=== PATIENT | male | born 1950 | race Caucasian/White ===

== ENCOUNTER → 2017-08-26 | Outpatient (CLI) | payer OTHER ==
--- NOTE | 2017-08-26 14:49 | DIAGNOSTIC IMAGING REPORT ---
RIGHT HIP 2 VIEWS CLINICAL HISTORY: Right hip pain. FINDINGS: AP and frog-leg views of the right hip are obtained. No prior studies are available for comparison at the time of dictation. The skeletal structures are well mineralized for age. No fracture is seen in the right hip or the visualized right hemipelvis. Mild arthritic change and joint space loss is noted in the hips. Small enthesophytes arise from the right anterior superior iliac spine. There is mild sclerotic change seen in the right sacroiliac joint. The overlying soft tissues are within normal limits. Phleboliths are identified in the right hemipelvis. IMPRESSION: Mild arthritic change as above. No acute bony abnormality is seen in the right hip. Electronically signed by: Omar Garcia M.D. 08/26/2017 2:47 PM Dictated Date/Time: 08/26/2017 2:46 PM
== END | disposition home or self-care (01) ==
LOC: C.RAD1850 14:17
PROVIDERS: ATTEND Family Medicine
DX: M25.559 Pain in unspecified hip (principal)

== ENCOUNTER 2018-06-08 15:01 | Inpatient (IN) | payer OTHER ==
[~2018-06-08] VITALS: Ht 175.3 cm; Wt 83.6 kg
[2018-06-08] MEDS ORDERED: ASPIRIN 324 MG CHEW PO STA (15:41)
--- NOTE | 2018-06-08 15:54 | EMERGENCY ROOM VISIT NOTE ---
History Report prepared by Dada: Anila Goncalves Under the Supervision of: Dr. Ivan Lo M.D. First contact with patient: 15:34 Chief Complaint: CHEST PAIN Stated Complaint: CHEST PAIN WHEN EXERCISING History of Present Illness The patient is a 67 year old white male with a past medical history of Type II diabetes and HTN who presents to the ED with a cc of intermittent chest pain on exertion beginning 3-4 weeks ago. He states he first noted the pain 3-4 weeks ago while running on a treadmill, and decided to push through it. The patient states he has continued to have pain with exertion, and has stopped running the past few times it occurred. He reports he experienced the pain while walking yesterday. The patient describes the pain as a pressure and states it is located in the center of his test. He notes some nausea, and denies any vomiting , calf pain, or history of blood clots. The patient denies any personal history of heart disease. He reports he takes a baby aspirin every night, and has not yet taken one today. The patient notes his BP medication was recently changed. He was referred to the ED following an appointment at [facility] physician group today. Source of History: patient Onset: 3-4 weeks ago Position: chest Quality: pressure Timing: other (intermittent) Modifying Factors (Worsening): other (exertion) Associated Symptoms: + nausea, No vomiting Note: Denies: calf pain Review of Systems See HPI for pertinent positives and negatives. A total of ten systems were reviewed and were otherwise negative. Past Medical & Surgical Medical Problems: (1) HTN (hypertension) (2) Type 2 diabetes mellitus Family History No pertinent family history stated. Social History Smoking Status: Never Smoker Smokeless Tobacco Use: No Current/Historical Medications Scheduled Aspirin (Aspirin Ec), 81 MG PO QPM Coenzyme Q10 (Ubidecarenone) (Coq10), 200 MG PO BID Ezetimibe (Zetia), 10 MG PO DAILY Losartan Potassium (Cozaar), 100 MG PO DAILY Metformin Hcl (Glucophage), 500 MG PO QPM Multivitamins/Minerals (Mvi With Minerals), 1 TAB PO DAILY Omeprazole (Prilosec), 40 MG PO DAILY Polyethylene Glycol 3350 (Bulk (Polyethylene Glycol 3350), 17 GM PO QPM Allergies Coded Allergies: No Known Allergies (Unverified , 06/08/18) Physical Exam Vital Signs Date Time Temp Pulse Resp B/P (MAP) Pulse Ox O2 Delivery O2 Flow Rate FiO2 06/08/18 18:25 70 20 151/84 95 Room Air 06/08/18 17:30 75 95 Room Air 06/08/18 17:00 74 18 145/87 94 Room Air 06/08/18 16:12 69 06/08/18 16:12 96 Room Air 06/08/18 16:10 67 17 156/80 97 Room Air 06/08/18 15:06 98 Room Air 06/08/18 15:04 36.4 86 17 146/94 98 Room Air Physical Exam GENERAL: Awake, alert, well-appearing, NAD, wearing glasses HENT: Normocephalic, atraumatic. EYES: Normal conjunctiva. Sclera non-icteric. PERRL. No anisocoria. NECK: Supple. No nuchal rigidity. FROM. RESPIRATORY: CTAB, no rhonchi, wheezing, crackles CARDIAC: RRR, no MRG ABDOMEN: Soft, NTND, BS+ MSK: No chest wall TTP, no LE edema, no calf pain, negative Ministerio's. NEURO: GCS 15, CN 2-12 intact, moves all 4s on command SKIN: No rash or jaundice noted. Medical Decision & Procedures ER Provider Diagnostic Interpretation: Radiology results as stated below per my review and radiologist interpretation: CHEST ONE VIEW PORTABLE CLINICAL HISTORY: Atypical chest pain COMPARISON STUDY: No previous studies for comparison. FINDINGS: The cardiac and mediastinal contours are normal. There is no evidence of focal pulmonary consolidation. There is no evidence of failure. No pleural effusions are visualized.[ A vague 6 mm density within the axillary portion of the left chest, likely represents a projectional artifact. IMPRESSION: No active disease in the chest. Electronically signed by: Juanito Pina M.D. 06/08/2018 4:09 PM Dictated Date/Time: 06/08/2018 4:06 PM Laboratory Results 06/08/18 15:55 Red Blood Count 5.09, Mean Corpuscular Volume 88.6, Mean Corpuscular Hemoglobin 29.3, Mean Corpuscular Hemoglobin Concent 33.0, Mean Platelet Volume 9.3, Neutrophils (%) (Auto) 66.5, Lymphocytes (%) (Auto) 23.0, Monocytes (%) (Auto) 7.6, Eosinophils (%) (Auto) 2.4, Basophils (%) (Auto) 0.2, Neutrophils # (Auto) 7.88, Lymphocytes # (Auto) 2.73, Monocytes # (Auto) 0.90, Eosinophils # (Auto) 0.29, Basophils # (Auto) 0.02 06/08/18 15:55 Test 06/08/18 15:55 White Blood Count 11.86 K/uL (4.8-10.8) Red Blood Count 5.09 M/uL (4.7-6.1) Hemoglobin 14.9 g/dL (14.0-18.0) Hematocrit 45.1 % (42-52) Mean Corpuscular Volume 88.6 fL (80-100) Mean Corpuscular Hemoglobin 29.3 pg (25-34) Mean Corpuscular Hemoglobin Concent 33.0 g/dl (32-36) Platelet Count 288 K/uL (130-400) Mean Platelet Volume 9.3 fL (7.4-10.4) Neutrophils (%) (Auto) 66.5 % Lymphocytes (%) (Auto) 23.0 % Monocytes (%) (Auto) 7.6 % Eosinophils (%) (Auto) 2.4 % Basophils (%) (Auto) 0.2 % Neutrophils # (Auto) 7.88 K/uL (1.4-6.5) Lymphocytes # (Auto) 2.73 K/uL (1.2-3.4) Monocytes # (Auto) 0.90 K/uL (0.11-0.59) Eosinophils # (Auto) 0.29 K/uL (0-0.5) Basophils # (Auto) 0.02 K/uL (0-0.2) RDW Standard Deviation 43.2 fL (36.4-46.3) RDW Coefficient of Variation 13.2 % (11.5-14.5) Immature Granulocyte % (Auto) 0.3 % Immature Granulocyte # (Auto) 0.04 K/uL (0.00-0.02) Prothrombin Time 10.2 SECONDS (9.0-12.0) Prothromb Time International Ratio 1.0 (0.9-1.1) Activated Partial Thromboplast Time 27.5 SECONDS (21.0-31.0) Partial Thromboplastin Ratio 1.1 Anion Gap 8.0 mmol/L (3-11) Est Creatinine Clear Calc Drug Dose 81.6 ml/min Estimated GFR () 93.4 Estimated GFR (Non- 80.6 BUN/Creatinine Ratio 18.8 (10-20) Calcium Level 9.3 mg/dl (8.5-10.1) Phosphorus Level 4.3 mg/dl (2.5-4.9) Magnesium Level 1.9 mg/dl (1.8-2.4) Total Bilirubin 0.4 mg/dl (0.2-1) Direct Bilirubin < 0.1 mg/dl (0-0.2) Aspartate Amino Transf (AST/SGOT) 21 U/L (15-37) Alanine Aminotransferase (ALT/SGPT) 29 U/L (12-78) Alkaline Phosphatase 84 U/L (45-117) Troponin I < 0.015 ng/ml (0-0.045) Pro-B-Type Natriuretic Peptide 71 pg/ml (0-900) Total Protein 7.2 gm/dl (6.4-8.2) Albumin 3.8 gm/dl (3.4-5.0) Lipase 95 U/L (73-393) Laboratory results reviewed by me Medications Administered Medications (Trade) Dose Ordered Sig/Kathryn Route Start Time Stop Time Status Last Admin Dose Admin Aspirin (Aspirin Chew) 324 mg NOW STAT PO 06/08/18 15:41 06/08/18 15:43 DC 06/08/18 16:13 324 MG ECG Per My Interpretation Indication: chest pain Rate (beats per minute): 61 Rhythm: normal sinus Findings: other (normal intervals. normal axis. T-wave flattening anteriorly ) ED Course 1535: The patient was evaluated in room C8. A complete history and physical exam was performed. 1844: Discussed the patient's case with Dr. Cannon, [facility] hospitalist. The patient will be evaluated for further treatment and disposition. Medical Decision Nursing notes reviewed. Ancillary studies and prior records reviewed. The patient is a 67 year old white male with a past medical history of Type II diabetes and HTN who presents to the ED with a cc of intermittent chest pain on exertion beginning 3-4 weeks ago. Etiologies such as cardiac ischemia, aortic dissection, pulmonary embolism, pneumonia, pneumothorax, musculoskeletal, infections, pericarditis, myocarditis , esophageal rupture, gastrointestinal, as well as others were entertained. Patient was seen and evaluated the bedside. H/o DM2, HTN, HLD, and GERD. The patient was referred from primary care clinic as the patient had been seen and evaluated there. The primary care physician had called for you to [facility] cardiology referred him here was concern for anginal type symptoms. Patient is otherwise well-appearing but has describes some exertion chest pains that is central and pressure-like in nature. Patient denies any infectious symptoms or history of DVT or PE. The patient does not appear volume overloaded. Patient did blood work completed, EKG, troponin, chest x-ray. The patient was given full dose aspirin. Patient denies any active chest pain. Patient does have some T-wave flattening anteriorly but no acute ischemic changes. The patient does have a normal troponin and electrolytes. The patient is not anemic and has a normal white blood cell count. Given the patient's exertional chest pain symptoms I believe he would benefit from further workup and treatment at this time. He did speak with the on-call hospitalist who agreed to further evaluate treat the patient. The patient was also informed to notify any staff if he has any recurrence of chest pain. Medication Reconcilliation Current Medication List: was personally reviewed by me Blood Pressure Screening Patient's blood pressure: Elevated blood pressure Blood pressure disposition: Referred to PCP (referred to hospitalist) Consults Time Called: 1829 Consulting Physician: Dr. Cannon, [facility] hospitalist Returned Call: 1843 Discussed the patient's case with Dr. Cannon [facility] hospitalist. The patient will be evaluated for further treatment and disposition. Impression Primary Impression: Angina pectoris Scribe Attestation The scribe's documentation has been prepared under my direction and personally reviewed by me in its entirety. I confirm that the note above accurately reflects all work, treatment, procedures, and medical decision making performed by me. Departure Information Dispostion Being Evaluated By Hospitalist Referrals Loc Aquino M.D. (PCP) Patient Instructions My [facility]
--- NOTE | 2018-06-08 16:10 | DIAGNOSTIC IMAGING REPORT ---
CHEST ONE VIEW PORTABLE CLINICAL HISTORY: Atypical chest pain COMPARISON STUDY: No previous studies for comparison. FINDINGS: The cardiac and mediastinal contours are normal. There is no evidence of focal pulmonary consolidation. There is no evidence of failure. No pleural effusions are visualized.[ A vague 6 mm density within the axillary portion of the left chest, likely represents a projectional artifact. IMPRESSION: No active disease in the chest. Electronically signed by: Juanito Pina M.D. 06/08/2018 4:09 PM Dictated Date/Time: 06/08/2018 4:06 PM
[2018-06-08 16:11] LABS: BASO % 0.2 %; BASO ABS # 0.02 K/uL (0-0.2); EOS % 2.4 %; EOS ABS # 0.29 K/uL (0-0.5); HEMATOCRIT 45.1 % (42-52); HEMOGLOBIN 14.9 g/dL (14.0-18.0); IG# 0.04 K/uL (0.00-0.02); LYMPH ABS # 2.73 K/uL (1.2-3.4); MEAN CELL VOLUME 88.6 fL (80-100); MEAN CORPUSCULAR HEMOGLOBIN 29.3 pg (25-34); MEAN PLATELET VOLUME 9.3 fL (7.4-10.4); MONO % 7.6 %; NEUT % 66.5 %; NEUT ABS # 7.88 K/uL (1.4-6.5); PLATELET COUNT 288 K/uL (130-400); RED CELL DISTRIBUTION WIDTH CV 13.2 % (11.5-14.5); RED CELL DISTRIBUTION WIDTH SD 43.2 fL (36.4-46.3); WHITE BLOOD COUNT 11.86 K/uL (4.8-10.8)
[2018-06-08 16:24] LABS: ALBUMIN 3.8 gm/dl (3.4-5.0); ALKALINE PHOSPHATASE 84 U/L (45-117); ALT/SGPT 29 U/L (12-78); AST/SGOT 21 U/L (15-37); BLOOD UREA NITROGEN 18 mg/dl (7-18); CALCIUM 9.3 mg/dl (8.5-10.1); CARBON DIOXIDE 27 mmol/L (21-32); CREATININE 0.98 mg/dl (0.60-1.40); GLUCOSE 107 mg/dl (70-99); LIPASE 95 U/L (73-393); PHOSPHORUS 4.3 mg/dl (2.5-4.9); POTASSIUM 4.2 mmol/L (3.5-5.1); PTT PATIENT 27.5 SECONDS (21.0-31.0); SODIUM 139 mmol/L (136-145); TOTAL PROTEIN 7.2 gm/dl (6.4-8.2)
[2018-06-08] MEDS ORDERED: ASPI81TA28 PO (16:41)
[2018-06-08] MEDS ORDERED: OMEP40CA41 PO (16:41)
[2018-06-08] MEDS ORDERED: COEN1CAP7 PO (16:41)
[2018-06-08] MEDS ORDERED: LOSA1TAB38 PO (16:41)
[2018-06-08] MEDS ORDERED: GLC/500 PO (16:41)
[2018-06-08] MEDS ORDERED: MULT-513 PO (16:41)
[2018-06-08] MEDS ORDERED: EZET10TA63 PO (16:41)
[2018-06-08] MEDS ORDERED: POLY1POW2 PO (16:41)
[2018-06-08 23:23] VITALS: BP 165/74; PULSE 65; TEMP 36.7; O2SAT 99; Ht 175.3 cm; Wt 83.6 kg
[2018-06-09] VITALS (9 sets, daily range): BP systolic 109–141; BP diastolic 62–84; PULSE 59–81; TEMP 36.4–37; O2SAT 95–98
[2018-06-09] MEDS: POLYETHYLENE (MIRALAX) 17 GM PACK PO SCH ×2 (00:13→20:41)
[2018-06-09] MEDS: ASPIRIN 81 MG ECTAB PO SCH ×2 (00:13→20:41)
[2018-06-09 07:18] LABS: BASO % 0.3 %; BASO ABS # 0.03 K/uL (0-0.2); EOS % 3.4 %; EOS ABS # 0.35 K/uL (0-0.5); HEMATOCRIT 45.2 % (42-52); HEMOGLOBIN 14.8 g/dL (14.0-18.0); IG# 0.03 K/uL (0.00-0.02); LYMPH % 28.8 %; LYMPH ABS # 2.96 K/uL (1.2-3.4); MEAN CELL VOLUME 87.9 fL (80-100); MEAN CORPUSCULAR HEMOGLOBIN 28.8 pg (25-34); MEAN PLATELET VOLUME 9.5 fL (7.4-10.4); MONO % 11.7 %; NEUT % 55.5 %; PLATELET COUNT 279 K/uL (130-400); RED CELL DISTRIBUTION WIDTH SD 41.7 fL (36.4-46.3); WHITE BLOOD COUNT 10.27 K/uL (4.8-10.8)
[2018-06-09 07:23] LABS: MEAN CORPUSCULAR HGB CONC 32.7 g/dl (32-36)
[2018-06-09] MEDS: LOSARTAN POTASSIUM 50 MG TAB PO SCH (07:34)
[2018-06-09] MEDS: PANTOprazole SOD 40 MG TAB PO SCH (07:34)
[2018-06-09 07:45] LABS: BLOOD UREA NITROGEN 21 mg/dl (7-18); CALCIUM 9.2 mg/dl (8.5-10.1); CARBON DIOXIDE 29 mmol/L (21-32); CREATININE 1.04 mg/dl (0.60-1.40); GLUCOSE 117 mg/dl (70-99); SODIUM 140 mmol/L (136-145)
[2018-06-09] MEDS ORDERED: SODIUM CHLORIDE 0.9% 1000ML 1,000 ML IV SCH ×2 (08:45→12:30)
--- NOTE | 2018-06-09 09:08 | CARDIOLOGY CONSULTATION ---
DATE OF CONSULTATION: 06/09/2018 REQUESTING PHYSICIAN: Jerry Mujica MD SQUEEGEE FINISHER: Ronnell Bowen DO, [facility]. REASON FOR CONSULTATION: Unstable angina. Dear Dr. Mujica: It was pleasure to see Judson today in consultation with regards to his unstable angina. As you know, I do follow him in the outpatient setting. He describes a month ago he was able to exercise on the treadmill for an hour without any symptoms. He notes approximately 3 weeks ago, he started noticing chest tightness in the upper portion of his chest that started to radiate up into his throat and down his arm. Initially, he could push through it without having to stop, over the last couple of weeks has become significantly more progressive to the point that he is not able to walk on the treadmill at all without getting symptoms. In the last couple of days, he has tried to walk just on the flat and he is getting similar symptoms with discomfort down his arm. He denies any diaphoresis, nausea, vomiting. He presented to Dr. Aquino's office yesterday with progressive symptoms of unstable angina. They contacted our office and I recommended that he be admitted with unstable angina and plans for cardiac catheterization today. He currently denies any chest discomfort, resting in bed. He does have some lower abdominal discomfort. He denies any palpitations, lightheadedness, dizziness, presyncope, syncope, lower extremity edema, symptoms of claudication. He denies any bleeding, bruising, dark stools or black stools. He denies any plans for upcoming surgery, dental procedures, tooth extraction, colonoscopy, etc. REVIEW OF SYSTEMS: The rest of review of systems is otherwise negative. PAST MEDICAL HISTORY: 1. Hypertension. 2. Hyperlipidemia. 3. Diabetes mellitus type 2. FAMILY HISTORY: Positive for premature heart disease, both in his father and his brother. SOCIAL HISTORY: He is a lifetime nonsmoker. He is . He is retired. OUTPATIENT MEDICATIONS: Include aspirin, Coenzyme Q10, ezetimibe, losartan, metformin, multivitamin, omeprazole and polyethylene glycol. ALLERGIES: No known drug allergies, but he is intolerant of all statins due to significant myalgias. INPATIENT MEDICATIONS: Reviewed in detail. PHYSICAL EXAMINATION: GENERAL: He is awake, alert, oriented x3. He is in no acute distress. He is a well-appearing male, looks his stated age. VITAL SIGNS: His heart rate is 62, respirations 19, blood pressure 109/65, sat 97%. HEENT: 2+ carotid upstrokes, no evidence of carotid bruits. Jugular pressure appeared normal. Sclerae is anicteric. Hearing is normal. LUNGS: Clear to auscultation bilaterally. No rales, rhonchi or wheezing. HEART: Regular rate and rhythm. No appreciable murmurs, rubs or gallops. ABDOMEN: Soft, nontender, nondistended. Positive bowel sounds. EXTREMITIES: No clubbing, cyanosis or edema. PSYCHIATRIC: His affect appeared appropriate, although he does appear somewhat anxious. LABORATORY DATA: Hemoglobin 14.8, platelet count of 279. Sodium 140, potassium 4.0, BUN 21, creatinine 1.04. His troponins are negative x2. His BMP was normal. His lipase is normal. His coags are normal. Chest x-ray, no active disease. EKG is interpreted by me, sinus rhythm, nonspecific T-wave changes. IMPRESSION: 1. Unstable angina. 2. Hypertension. 3. Hyperlipidemia, intolerant of statins. 4. Diabetes mellitus type 2, on metformin. As I discussed with Judson, he gives a very good story of progressive anginal symptoms. Given the fact he has had progressive symptoms, I did recommend cardiac catheterization. I discussed the risks and benefits of cardiac catheterization. Risks including but not limited to bleeding or infection at the puncture site, damage to his radial or femoral artery, risk of contrast-induced nephropathy, allergic reaction to contrast and 100,000 risk of heart attack, stroke or dying with the procedure were discussed. He understands the risks and wishes to proceed. He has been n.p.o. since midnight. I did start him on IV fluids in anticipation of the procedure. There is no room to start beta blockers or ALEXSY inhibitors given his relatively low heart rate and blood pressure. If there is room as an outpatient, we can try to add ALEXYS inhibitor therapy. In addition, depending on his lipids, we can discuss the possibility of adding PCSK9 inhibitors to his Zetia given the fact he is intolerant of statins. The procedure was discussed with him in detail. He understands that if he had single vessel disease that is amenable to angioplasty and stenting that we will go ahead and fix that today and he would stay overnight, if he had left main disease or triple vessel disease that would require surgical intervention. As noted, he has no plans for any upcoming surgery or colonoscopy. I discussed if he has angioplasty and stenting he be on aspirin for life and Plavix for a year. All his questions were answered in detail. In addition, this was discussed with Dr. Bradford of interventional cardiology. Thank you for allowing us to participate in his care. IVONNE
[2018-06-09] MEDS: EZETIMIBE 10MG TAB PO SCH (09:28)
--- NOTE | 2018-06-09 10:03 | History and Physical ---
History & Physical Date of Service Jun 08, 2018. - duplicate History & Physical Date & Time of Service: Jun 08, 2018 at 18:57 Chief Complaint: R29.89 Primary Care Physician: Loc Aquino M.D. History of Present Illness Source: patient, hospital records, other 67 y/o M Hx HTN, HLD, DM II. Presents with exertional CP x 3-4 weeks. The pt' s pain began when he was on a treadmill a few weeks ago. He describes central CP radiating into his L arm which is relieved with rest. He denies SOB, N/V, diaphoresis or lightheadedness. He developed symptoms when walking the prior day and had contacted his MD. After discussing the above with his MD, a discussion took place with his churn driller and he was directed to the ER for presumed unstable angina. He will be evaluated for catheterization AM. Past Medical/Surgical History 1) HTN 2) HLD - statin-intolerant 3) DM II Surgical: 1) R shoulder 2) L inguinal hernia Family History Father CAD Mother lung disease Social History No smoking history, social ETOH - hospital education coordinator Allergies Coded Allergies: No Known Allergies (Unverified , 06/08/18) Home Medications Scheduled Aspirin (Aspirin Ec), 81 MG PO QPM Coenzyme Q10 (Ubidecarenone) (Coq10), 200 MG PO BID Ezetimibe (Zetia), 10 MG PO DAILY Losartan Potassium (Cozaar), 100 MG PO DAILY Metformin Hcl (Glucophage), 500 MG PO QPM Multivitamins/Minerals (Mvi With Minerals), 1 TAB PO DAILY Omeprazole (Prilosec), 40 MG PO DAILY Polyethylene Glycol 3350 (Bulk (Polyethylene Glycol 3350), 17 GM PO QPM Review of Systems Constitutional: No fever, No chills, No sweats Eyes: No worsening of vision ENT: No hearing loss, No unusual epistaxis, No nasal symptoms Respiratory: No cough, No sputum, No wheezing Cardiovascular: + chest pain, No orthopnea, No PND Abdomen: No pain, No nausea, No vomiting Musculoskeletal: No joint pain Genitourinary - Male: No hematuria, No dysuria Neurologic: No memory loss, No paralysis, No weakness Psychiatric: No depression symptoms Endocrine: No fatigue Hematologic / Lymphatic: No abnormal bleeding/bruising Integumentary: No rash Physical Exam H&P v2 Physical Exam General Appearance: WD/WN, no apparent distress Head: normocephalic Eyes: normal inspection ENT: normal ENT inspection, pharynx normal Neck: supple, no JVD Respiratory/Chest: chest non-tender, lungs clear Cardiovascular: regular rate, rhythm, no edema Abdomen/GI: normal bowel sounds, non tender, soft Back: normal inspection, no CVA tenderness 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 Presents with exertional CP x 3-4 weeks. The pt' s pain began when he was on a treadmill a few weeks ago. He describes central CP radiating into his L arm which is relieved with rest. He denies SOB, N/V, diaphoresis or lightheadedness. He developed symptoms when walking the prior day and had contacted his MD. After discussing the above with his MD, a discussion took place with his churn driller and he was directed to the ER for presumed unstable angina. He will be evaluated for catheterization AM. 1) Unstable angina - possible AM cath - cardiology consulted. The pt will be placed on ASA and anticoagulation. His HR would not likely tolerate a B artie and he cannot tolerate Statins. 2) DM II - placed on a SS for admission 3) HTN - can remain on Losartan 4) HLD - statin-intolerant - can cont Ezetimibe on DC Full code - Heparin prophylaxis Total time for this admit including review of labs, meds, imaging, records - discussion with pt, cardiology and ER attending - 35 min Resuscitation Status VTE Prophylaxis Will order VTE Prophylaxis: Yes
[2018-06-09] MEDS ORDERED: FENTANYL CITRATE INJ 50 MCG/1 ML 2 ML VIAL ONE ×2 (11:29→11:56)
[2018-06-09] MEDS ORDERED: MIDAZOLAM HCL 1 MG/ML 2ML VIAL ONE ×2 (11:29→11:56)
[2018-06-09] MEDS ORDERED: CLOPIDOGREL BISULFATE 300 MG TAB PO ONE (11:47)
--- NOTE | 2018-06-09 11:51 | Pre Sedation Assessment ---
Pre Sedation Assessment General Date of Sedation: Jun 09, 2018. Vital Signs Past 12 Hours Date Time Temp Pulse Resp B/P (MAP) Pulse Ox O2 Delivery O2 Flow Rate FiO2 06/09/18 08:05 Room Air 06/09/18 06:43 36.8 62 19 109/65 (80) 97 Room Air 06/09/18 04:00 Room Air 06/09/18 03:46 36.6 59 19 116/62 (80) 97 Room Air 06/08/18 23:59 Room Air Review Cardiovascular: regular rate, rhythm, no edema Lungs: chest non-tender, lungs clear Pre-Sedation Airway Assessment Smoking Status: Never Smoker Hx of Sleep Apnea: No Hx of difficult intubation: No Short Thick Neck: No Thyro-mental Distance: > 3 Finger Breadths Oral Cavity: WNL Mallampati Classification: Class II ASA Classification: Class III NPO Status Date of Last Intake of Fluids: Jun 09, 2018 Time of Last Intake of Fluids: 1900 Date of Last Intake of Solids: Jun 09, 2018 Time of Last Intake of Solids: 1899 Procedure Planning Contraindications for Sedation: None Current Medications Reviewed: Yes Notes The planned sedation has been discussed with the patient. Informed Consent was obtained. I have identified the patient, determined the appropriateness of sedation and have assessed the patient immediately prior to the procedure. All medicine(s) and interventions are by my order.
--- NOTE | 2018-06-09 11:52 | Post Sedation Assessment ---
Post Sedation Assessment General Date of Sedation Jun 09, 2018. Vital Signs: Vital Signs Past 12 Hours Date Time Temp Pulse Resp B/P (MAP) Pulse Ox O2 Delivery O2 Flow Rate FiO2 06/09/18 08:05 Room Air 06/09/18 06:43 36.8 62 19 109/65 (80) 97 Room Air 06/09/18 04:00 Room Air 06/09/18 03:46 36.6 59 19 116/62 (80) 97 Room Air 06/08/18 23:59 Room Air Post Procedure Recovery Score Activity: (2) Moves 4 extremities * Respiration: (2) Deep breath/cough Circulation: (2) +/-20% PreAnes Value Consciousness: (2) Fully Awake Oxygen Saturation: (2) > 92% On Room Air Discharge Sedation Level of Care: Fast Track Phase II Post Sedation Plan On clinical assessment, the patient appears to have tolerated the sedation without complications. Patient is recovering as anticipated. Patient will continue to be monitored by nursing and may be discharged when sedation discharge criteria are met per below protocol. Upon Completions of procedure and additional 15 minutes continue every 5 minute vital signs and the P.A.R. score; then discharge to a Phase I or Fast Track to Phase II per the following guidelines: * Discharge Patient to appropriate Phase II area if PAR is 8 or greater or return to pre- procedure baseline. The post - procedure orders will be as directed. * If PAR score is less than 8 or not return to pre-procedure baseline then patient will follow Phase I monitoring till PAR is reached for Phase II. The Phase I may be done in procedure room or may call to secure a Phase I area. * If naloxone or flumazenil are used for reversal, hold in Phase I for an additional 60 -120 minutes before discharge to Phase II. Please call the Sedation Physician to re-evaluate and complete post-note for discharge to Phase II area. Do NOT discharge from procedure sedation or Phase 1 until post- sedation evaluation note is complete by procedure /sedation MD Sedation Discharge Instructions to be given to the patient at discharge to home.
[2018-06-09] MEDS ORDERED: NITROGLYCERIN/D5W 100MCG/ML 20ML SYR ONE (11:57)
[2018-06-09] MEDS ORDERED: NiCARDipine HCL INJ 2.5 MG/ML 10 ML AMP ONE (11:57)
[2018-06-09] MEDS ORDERED: HEPARIN SOD (PORCINE) 1000 UNIT/ML 10 ML VIAL ONE (11:57)
--- NOTE | 2018-06-09 12:03 | Cardiac Catheterization ---
Procedure Note Procedure Date Jun 09, 2018. Pre-Procedure Diagnosis Acute Coronary Syndrome AUC Score 7 Post-Procedure Diagnosis Severe CAD, Successful PCI, Normal Intracardiac Pressures Procedure(s) Performed Coronary Angiography, Left Heart Cath, Drug Eluting Stent Hog Confinement System Manager Sanchez Head Tennis Professional(s) Caden Estimated Blood Loss 15 Medication(s) Clopidogrel, Fentanyl, Heparin, Nicardipine, Nitroglycerin, Versed, Lidocaine 1% Summary of Findings Indication: Unstable Angina Access: 6Fr right radial artery Catheters: [place]; EBU 3.5 guide Findings: LM - Angiographically normal LAD - Moderate caliber, diffuse 30% disease; 99% focal mid segment disease right after take-off of 1st septal branch; distal luminal irregularities as wraps around apex with KELLY 2 flow. Circumflex - Large caliber vessel with luminal irregularities. Moderate caliber OM1 with 20-30% proximal stenosis. Large L-PLB without significant disease. RCA - Dominant, diffuse 40-50% distal disease; 30% proximal R-PDA LVEDP - 6 -- PCI -- Antithrombotic therapy: Heparin, clopidogrel Procedure: LM cannulated with EBU 3.5 guide BMW wire passed across lesion into distal vessel Mid LAD lesion predilated with 2.5 compliant balloon Dilated lesion stented with 3.0 x 18 Xience IRIS Stent post-dilated with 3.0 noncompliant balloon IC vasodilators administered for spasm Post procedure KELLY 3 flow, stent well expanded with minimal residual stenosis and no apparent cardiac complications. Arterial Closure: TR Band Summary: 1. Severe single vessel coronary artery disease - 99% focal mid LAD stenosis with KELLY 2 distal flow - 40-50% diffuse distal RCA disease 2. Normal intracardiac filling pressure 3. Successful PCI of mid LAD with single drug-eluting stent (3.0 x 18 Xience). Recommendations: To PCU for continued monitoring Loaded with clopidogrel 600mg in laboratory development technician Continue dual-antiplatelet therapy for at least 1 year. Continue statin, and ASCVD risk factor modification Consult cardiac Rehab Hemodynamics Rest Ao: 107/67/84 Final Ao: 112/58/81 LV: 109/6 Recommendations PCI without planned CABG Specimens None Radiation Exposure (mGy) 1299 Contrast (mls) 70 opti Fluids (cc crystalloids) 75 Drains none Anesthesia moderate Procedural Complication(s) None Disposition PCU ACC Data Cardiac Status Clinical evaluation leading to the procedure CAD Presntation: Unstable angina Anginal Classification: CCS III Heart Failure: No, NYHA Class: CCS I Cardiogenic Shock w/in 24Hrs: No Cardiac Arrest w/in 24Hrs: No Imaging studies past 6 months: Yes Stress studies past 6 months: No Closure Device Percutaneous Entry Location: Radial Closure Device: Radial Band Recommendations: PCI without planned CABG PCI Indication: Unstable Angina Lesion Segment Name: mid LAD Culprit Artery: Yes Stenosis Prior to Rx (%): 99 Chronic Total Occlusion: No IVUS: No FFR: No Pre-Procedure KELLY Flow: 2 Previously Treated Lesion: No Lesion Complexity: Non-High/Non-C Lesion Length (mm): 12 Thrombus Present: Yes Bifurcation Lesion: Yes Guidewire Across Lesion: Yes Guidewire: Stenosis Post-Procedure (%): 0 Post-Procedure KELLY Flow: 3 Device(s) Deployed: Yes Intraprocedure Events Significant Dissection: No Perforation: No
[2018-06-09] MEDS ORDERED: ONDANSETRON INJ 2 MG/ML 2 ML VIAL IV PRN (12:15)
--- NOTE | 2018-06-09 14:40 | Hospitalist Progress Note ---
Hospitalist Progress Note Date of Service Jun 09, 2018. (Madison Pham .BILLY) Subjective Pt evaluation today including: conversation w/ patient, physical exam, chart review, lab review, review of studies, conversation w/ it support consultant, review of inpatient medication list Voiding: no voiding problems Mr. Robles was very unhappy with his admission so far when I saw him this morning. He felt that he stayed in the ED too long the night before and also felt that he had seen too many providers who he didn't think were communicating with each other. I discussed his case with service excellence and also talked with Drs. Bradford and Andrés about the patient's care. Patient was able to go earlier than expected to the laboratory worker where he received one DAVID. Upon revisiting him after the stent he was more satisfied with his care and had no further complaints or requests. ROS Constitutional: no chills, aches, sweats or fever Respiratory: no sob,cough, sputum, or wheezing Cardiac: no chest pain, palpitations, edema, orthopnea or lightheadedness GI: no abdominal pain, nausea, vomiting, diarrhea or constipation : no dysuria or hesitancy Extremities: no joint pain or weakness Skin: no rash All other systems reviewed and negative (Madison Pham CRNP) Medications Medications Administered Medications (Trade) Dose Ordered Sig/Kathryn Route Start Time Stop Time Status Last Admin Dose Admin Aspirin (Aspirin Chew) 324 mg NOW STAT PO 06/08/18 15:41 06/08/18 15:43 DC 06/08/18 16:13 324 MG Aspirin (Ecotrin Tab) 81 mg QPM PO 06/08/18 21:00 07/08/18 20:59 06/09/18 00:13 81 MG Losartan Potassium (coZAAR TAB) 100 mg DAILY PO 06/09/18 09:00 07/09/18 08:59 Future Hold 06/09/18 07:34 100 MG Pantoprazole Sodium (Protonix Tab) 40 mg DAILY PO 06/09/18 09:00 07/09/18 08:59 06/09/18 07:34 40 MG Polyethylene (Miralax Powder Packet) 17 gm QPM PO 06/08/18 21:00 07/08/18 20:59 06/09/18 00:13 17 GM EZETIMIBE (Zetia Tab) 10 mg QAM PO 06/09/18 09:00 07/09/18 08:59 06/09/18 09:28 10 MG Sodium Chloride 1,000 ml @ 100 mls/hr Q10H IV 06/09/18 08:45 06/09/18 12:06 DC 06/09/18 09:28 100 MLS/HR Clopidogrel Bisulfate (plAVix TAB) 600 mg STK-MED ONCE PO 06/09/18 11:47 06/09/18 11:48 DC 06/09/18 11:47 600 MG Midazolam HCl (Versed Inj) 2 mg STK-MED ONCE .ROUTE 06/09/18 11:56 06/09/18 11:57 DC 06/09/18 11:56 3 MG Fentanyl Citrate (Fentanyl Inj) 100 mcg STK-MED ONCE .ROUTE 06/09/18 11:56 06/09/18 11:57 DC 06/09/18 11:56 150 MCG Heparin Sodium (Porcine) (Heparin Iv Bolus) 10,000 unit STK-MED ONCE .ROUTE 06/09/18 11:57 06/09/18 11:58 DC 06/09/18 11:57 9,000 UNIT Sodium Chloride 1,000 ml @ 100 mls/hr Q10H IV 06/09/18 12:30 06/09/18 19:59 06/09/18 12:51 100 MLS/HR (Madison Pham, BILLY) Objective Vital Signs Date Time Temp Pulse Resp B/P (MAP) Pulse Ox O2 Delivery O2 Flow Rate FiO2 06/09/18 13:45 81 18 136/84 (101) 98 Room Air 06/09/18 13:15 71 16 141/72 (95) 97 Room Air 06/09/18 12:45 68 16 124/65 (84) 95 Room Air 06/09/18 12:34 36.7 72 16 116/73 (87) 96 Room Air 06/09/18 11:59 82 20 133/76 (95) 99 Room Air 06/09/18 11:54 86 20 126/72 (90) 99 Room Air 06/09/18 11:49 85 20 129/72 (91) 99 Room Air 06/09/18 08:05 Room Air 06/09/18 06:43 36.8 62 19 109/65 (80) 97 Room Air 06/09/18 04:00 Room Air 06/09/18 03:46 36.6 59 19 116/62 (80) 97 Room Air 06/08/18 23:59 Room Air 06/08/18 23:23 36.7 65 18 165/74 99 Room Air 06/08/18 22:39 66 18 167/78 96 06/08/18 22:38 66 18 167/78 96 Room Air 06/08/18 21:15 81 18 174/95 97 Room Air 06/08/18 19:30 75 18 149/82 96 Room Air 06/08/18 19:00 74 21 163/102 97 Room Air 06/08/18 18:30 72 21 138/85 95 Room Air 06/08/18 18:25 70 20 151/84 95 Room Air 06/08/18 17:30 75 95 Room Air 06/08/18 17:00 74 18 145/87 94 Room Air 06/08/18 16:12 69 06/08/18 16:12 96 Room Air 06/08/18 16:10 67 17 156/80 97 Room Air 06/08/18 15:06 98 Room Air 06/08/18 15:04 36.4 86 17 146/94 98 Room Air (Madison Pham CRNP) Physical Exam Notes: General: no distress Eyes: normal inspection, PERLL Respiratory: chest non tender, clear to auscultation, normal breath sounds, no respiratory distress, no accessory muscle use Cardiac: regular rate and rhythm, no rub or gallop, no murmur, no edema, no jvd GI/: active bowel sounds, no abd pain or tenderness, soft, non distended Extremities: normal range of motion, normal strength, non tender Neuro/Psych: alert and oriented x 3, normal mood and affect Skin: normal color, dry (Madison Pham CRNP) Laboratory Results Last 24 Hours Test 06/08/18 15:55 06/09/18 06:54 06/09/18 11:28 06/09/18 12:40 White Blood Count 11.86 K/uL 10.27 K/uL Red Blood Count 5.09 M/uL 5.14 M/uL Hemoglobin 14.9 g/dL 14.8 g/dL Hematocrit 45.1 % 45.2 % Mean Corpuscular Volume 88.6 fL 87.9 fL Mean Corpuscular Hemoglobin 29.3 pg 28.8 pg Mean Corpuscular Hemoglobin Concent 33.0 g/dl 32.7 g/dl Platelet Count 288 K/uL 279 K/uL Mean Platelet Volume 9.3 fL 9.5 fL Neutrophils (%) (Auto) 66.5 % 55.5 % Lymphocytes (%) (Auto) 23.0 % 28.8 % Monocytes (%) (Auto) 7.6 % 11.7 % Eosinophils (%) (Auto) 2.4 % 3.4 % Basophils (%) (Auto) 0.2 % 0.3 % Neutrophils # (Auto) 7.88 K/uL 5.70 K/uL Lymphocytes # (Auto) 2.73 K/uL 2.96 K/uL Monocytes # (Auto) 0.90 K/uL 1.20 K/uL Eosinophils # (Auto) 0.29 K/uL 0.35 K/uL Basophils # (Auto) 0.02 K/uL 0.03 K/uL RDW Standard Deviation 43.2 fL 41.7 fL RDW Coefficient of Variation 13.2 % 13.0 % Immature Granulocyte % (Auto) 0.3 % 0.3 % Immature Granulocyte # (Auto) 0.04 K/uL 0.03 K/uL Prothrombin Time 10.2 SECONDS Prothromb Time International Ratio 1.0 Activated Partial Thromboplast Time 27.5 SECONDS Partial Thromboplastin Ratio 1.1 Sodium Level 139 mmol/L 140 mmol/L Potassium Level 4.2 mmol/L 4.0 mmol/L Chloride Level 104 mmol/L 102 mmol/L Carbon Dioxide Level 27 mmol/L 29 mmol/L Anion Gap 8.0 mmol/L 9.0 mmol/L Blood Urea Nitrogen 18 mg/dl 21 mg/dl Creatinine 0.98 mg/dl 1.04 mg/dl Est Creatinine Clear Calc Drug Dose 81.6 ml/min 76.8 ml/min Estimated GFR () 93.4 86.9 Estimated GFR (Non- 80.6 75.0 BUN/Creatinine Ratio 18.8 20.4 Random Glucose 107 mg/dl 117 mg/dl Calcium Level 9.3 mg/dl 9.2 mg/dl Phosphorus Level 4.3 mg/dl Magnesium Level 1.9 mg/dl 2.1 mg/dl Total Bilirubin 0.4 mg/dl Direct Bilirubin < 0.1 mg/dl Aspartate Amino Transf (AST/SGOT) 21 U/L Alanine Aminotransferase (ALT/SGPT) 29 U/L Alkaline Phosphatase 84 U/L Troponin I < 0.015 ng/ml < 0.015 ng/ml < 0.015 ng/ml Pro-B-Type Natriuretic Peptide 71 pg/ml Total Protein 7.2 gm/dl Albumin 3.8 gm/dl Lipase 95 U/L Kaolin Activated Coagulation Time 312 SECONDS (Madison Pham CRNP) Assessment and Plan Mr. Robles is a 67 y/o here with unstable angina Unstable angina - cath this afternoon - one david to the LAD via radial PCI - continue ASA, Plavix. His HR would not likely tolerate a B artie and he cannot tolerate Statins. - trops neg x 3 DM II - continue ss, bsgs ac & hs HTN - can remain on Losartan - hold until labs tomorrow HLD - statin-intolerant - continue Zetia (Madison Pham CRNP) THEATRE INSTRUCTOR Physician Supervision Note: I discussed with Madison Pham NP and agree with findings and plan as documented in the note. Any exceptions or clarifications are listed here: None Patient here with unstable angina underwent urgent left heart cath showing LAD coronary occlusive disease with stent deployment risk factors are being male diabetes hypertension will be on antiplatelet therapy and statin post procedure eventual follow-up with Dr. Linda in Documented By: Saul Naranjo (Saul Naranjo M.D.)
[2018-06-10 03:01] VITALS: BP 124/69; PULSE 62; TEMP 36.7; O2SAT 97
[2018-06-10 07:27] VITALS: BP 124/79; PULSE 64; TEMP 36.6; O2SAT 95
[2018-06-10] MEDS: EZETIMIBE 10MG TAB PO SCH (07:52)
[2018-06-10] MEDS: PANTOprazole SOD 40 MG TAB PO SCH (07:52)
[2018-06-10] MEDS: LOSARTAN POTASSIUM 50 MG TAB PO SCH (07:52)
[2018-06-10] MEDS ORDERED: CLOPIDOGREL BISULFATE 75 MG TAB PO SCH (09:00)
[2018-06-10 09:40] LABS: HEMATOCRIT 45.5 % (42-52); MEAN CELL VOLUME 88.2 fL (80-100); MEAN CORPUSCULAR HEMOGLOBIN 29.1 pg (25-34); MEAN PLATELET VOLUME 9.4 fL (7.4-10.4); PLATELET COUNT 261 K/uL (130-400); RED CELL DISTRIBUTION WIDTH CV 13.2 % (11.5-14.5); RED CELL DISTRIBUTION WIDTH SD 42.5 fL (36.4-46.3); WHITE BLOOD COUNT 8.59 K/uL (4.8-10.8)
[2018-06-10 10:14] LABS: CALCIUM 9.3 mg/dl (8.5-10.1); CREATININE 1.05 mg/dl (0.60-1.40); POTASSIUM 3.8 mmol/L (3.5-5.1)
--- NOTE | 2018-06-10 11:13 | Cardiology Follow-Up ---
Subjective General Date of Service: Jun 10, 2018. Pt evaluation today including: conversation w/ patient, conversation w/ family , chart review, lab review, review of studies, conversation w/ business solutions consultant History of Present Illness The patient is a 67 year old male Allergies Coded Allergies: No Known Allergies (Unverified , 06/08/18) Social History Smoking Status: Never Smoker Hx Tobacco Use In Past Year?: No Hx Alcohol Use - Type And Amou: No (mixed drinks and wine 3-4/week) Hx Substance Use - Type And Am: No Problem List Medical Problems: (1) Angina pectoris Status: Acute (2) HTN (hypertension) Status: Chronic (3) Type 2 diabetes mellitus Status: Chronic Review of Systems Respiratory: No cough, No shortness of breath, No dyspnea at rest Cardiac: No chest pain, No edema Physical Exam Vital Signs Last Vital Signs Documentation Date Time Temp Pulse Resp B/P (MAP) Pulse Ox O2 Delivery O2 Flow Rate FiO2 06/10/18 08:05 Room Air 06/10/18 07:27 36.6 64 16 124/79 (94) 95 Physical Exam Constitutional: General Apperance: heathly-appearing Level of Distress: NAD Lungs: Respiratory effort: no dyspnea Auscultation: breath sounds normal, no wheezing, no rales/crackles, no rhonchi Cardiovascular: Heart Auscultation: RRR, no murmurs, no rubs, no gallops Abdomen: Bowel Sounds: normal Inspection & Palpation: soft, non-distended, no tenderness, guarding & rebound Extremities: no edema, pertinent finding (2+ right radial pulse, hand warm to touch) Assessment and Plan Assessment and Plan 1. Unstable angina 2. Hyperlipidemia 3. Status post angioplasty and stenting of the mid LAD with a 3.0 x 18 mm and science drug-eluting stent 4. Residual coronary artery disease as discussed below LM - Angiographically normal LAD - Moderate caliber, diffuse 30% disease; 99% focal mid segment disease right after take-off of 1st septal branch; distal luminal irregularities as wraps around apex with KELLY 2 flow. Circumflex - Large caliber vessel with luminal irregularities. Moderate caliber OM1 with 20-30% proximal stenosis. Large L-PLB without significant disease. RCA - Dominant, diffuse 40-50% distal disease; 30% proximal R-PDA LVEDP - 6 The patient has a history of myalgias on statin therapy. He is on a which statin because his thigh muscles to ache. He is willing to consider Crestor which is hydrophilic and well-tolerated at 5 mg Tuesday. If he has any side effects including myalgias we would stop it and consider PCSK9 inhibitors as an outpatient. If he tolerates it we can increase the Crestor to 5 mg daily. He will remain on Zetia. In addition he will remain on aspirin 81 mg daily, Plavix 75 mg daily, and his proton pump inhibitor. We also discussed that if he needs to stop his Plavix for any reason in the next year he needs to contact our office before stopping it. I did discuss post cath instructions he should not submerge his right wrist in water but he can take a shower. He can walk which should not exercise for at least a week. He can climb stairs. He should not drive for for 5 days. Depending on his blood pressure as an outpatient will consider adding an angiotensin receptor artie. He will follow-up in the office in 2 weeks time. I did discuss that he should not have any anginal symptoms like he has had over the last 3 weeks. If he were to have angina he needs to immediately contact the office. We did discuss there is approximately a 4% risk of restenosis with a drug-eluting stent in a nondiabetic. As was discussed with the hospital service he can be discharged home today. Laboratory Results Last 24 Hours Test 06/09/18 11:28 06/09/18 12:40 06/09/18 18:59 06/10/18 09:16 Kaolin Activated Coagulation Time 312 SECONDS Troponin I < 0.015 ng/ml < 0.015 ng/ml White Blood Count 8.59 K/uL Red Blood Count 5.16 M/uL Hemoglobin 15.0 g/dL Hematocrit 45.5 % Mean Corpuscular Volume 88.2 fL Mean Corpuscular Hemoglobin 29.1 pg Mean Corpuscular Hemoglobin Concent 33.0 g/dl RDW Standard Deviation 42.5 fL RDW Coefficient of Variation 13.2 % Platelet Count 261 K/uL Mean Platelet Volume 9.4 fL Sodium Level 140 mmol/L Potassium Level 3.8 mmol/L Chloride Level 102 mmol/L Carbon Dioxide Level 28 mmol/L Anion Gap 10.0 mmol/L Blood Urea Nitrogen 20 mg/dl Creatinine 1.05 mg/dl Est Creatinine Clear Calc Drug Dose 70.2 ml/min Estimated GFR () 85.9 Estimated GFR (Non- 74.1 BUN/Creatinine Ratio 19.0 Random Glucose 192 mg/dl Calcium Level 9.3 mg/dl
[2018-06-10] MEDS ORDERED: PLV75 PO (11:31)
[2018-06-10] MEDS ORDERED: PANT40TA2 PO (11:31)
[2018-06-10] MEDS ORDERED: ROSU5TAB PO (11:31)
--- NOTE | 2018-06-10 11:41 | Discharge Instructions ---
Discharge Instructions Date of Service Jun 10, 2018. Admission Reason for Admission: Unstable Angina Discharge Discharge Diagnosis / Problem: Unstable Angina Discharge Goals Goal(s): Decrease discomfort, Diagnostic testing, Therapeutic intervention Activity Recommendations Activity Limitations: per Instructions/Follow-up section (You may walk but should not exercise for at least a week. You may climb stairs. You should not drive for for 5 days.) . Instructions / Follow-Up Instructions / Follow-Up Please follow up with Dr. Bowen in two weeks. Please follow up with your primary care provider in about a week. Please do not take your metformin until 06/12 to avoid possible interaction with the dye used in your cardiac catheterization I have changed your omeprazole to pantoprazole to avoid possible interaction with your clopidogrel. Please do not stop taking clopidogrel without talking to your superintendent ammunition storage first. You will start on Crestor (rosuvastatin) Tuesday, Tuesday, Tuesday at 5 mg. If you tolerate this dose, you can try advancing this medication at your cardiologists instruction. Please continue your Zetia ACTIVITY RECOMMENDATIONS: Excess manipulation of the wrist should be avoided for the next 24-48 hours. * No lifting over 2 pounds (approximately a 1/2 gallon of milk) with the utilized arm for 24 hours. * No strenuous activity such as bowling or tennis for 3 days. * Keep the site of the procedure covered with a bandage for 24 hours. *You may shower the day after the procedure. Do not take a tub bath or submerge the puncture site in water for the next 3 days. SPECIAL CARE INSTRUCTIONS: The site may be slightly bruised and sore following your procedure. Should any of the following occur, contact the Dr. who performed your procedure. 1. Redness/inflammation, swelling, chills, or fever, or colored drainage at procedure site within 3-7 days after your procedure. 2. Coldness, discoloration, ongoing numbness, severe pain, or swelling. Expect mild tingling of hand and tenderness at the puncture site for up to three days. If this persists beyond three days, or other symptoms develop, notify the Dr. who performed your procedure. BLEEDING: If the procedure site on your wrist begins to bleed, do not panic 1. Place 1 or 2 fingers firmly just slightly above the insertion site to stop the bleeding. You may be able to feel your pulse as you hold pressure. 2. Lift your finger after 5 minutes to see if the bleeding has stopped. 3. Once the bleeding has stopped, gently wipe the wrist area clean with a bandage. * If the bleeding from your wrist does not stop after 10 minutes, or if there is a large amount of bleeding or spurting, call 911 (do not drive yourself to the hospital). SKIN IRRITATION: * You may experience some redness and/or swelling in the area where radiation was administered. If any skin irritation occurs, please contact your family physician. FOLLOW UP VISIT: Keep any scheduled doctor appointments. Current Hospital Diet Patient's current hospital diet: AHA Diet (Heart Healthy) Discharge Diet Recommended Diet: AHA Diet (Heart Healthy), Diabetes Type 2 Diet Procedures Procedures Performed: Cardiac catheterization with placement of drug eluting stent to the mid LAD (left anterior descending artery) Pending Studies Studies pending at discharge: no Medical Emergencies . Who to Call and When: Medical Emergencies: If at any time you feel your situation is an emergency, please call 911 immediately. . Non-Emergent Contact Non-Emergency issues call your: Primary Care Provider, Bottle Booth Attendant Call Non-Emergent contact if: you have a fever, your pain is not controlled, your pain is worsening, your pain is unusual for you, your pain is concerning you, wound has increased drainage, wound has increased redness, wound has increased pain, you have any medication questions . . "Provider Documentation" section prepared by Madison Pham. .
--- NOTE | 2018-06-10 11:49 | Discharge Summary ---
Discharge Summary Date of Service Jun 10, 2018. Discharge Summary Admission Date: Jun 08, 2018 at 21:13 Discharge Date: Jun 10, 2018 Discharge Disposition: Home Principal Diagnosis: Unstable angina Problems/Secondary Diagnoses: (1) HTN (hypertension) Status: Chronic (2) Type 2 diabetes mellitus Status: Chronic Procedures: Procedure Date Jun 09, 2018. Pre-Procedure Diagnosis Acute Coronary Syndrome AUC Score 7 Post-Procedure Diagnosis Severe CAD, Successful PCI, Normal Intracardiac Pressures Procedure(s) Performed Coronary Angiography, Left Heart Cath, Drug Eluting Stent Heel Sewer Sanchez Manager Digital(s) Caden Estimated Blood Loss 15 Medication(s) Clopidogrel, Fentanyl, Heparin, Nicardipine, Nitroglycerin, Versed, Lidocaine 1% Summary of Findings Indication: Unstable Angina Access: 6Fr right radial artery Catheters: [place]; EBU 3.5 guide Findings: LM - Angiographically normal LAD - Moderate caliber, diffuse 30% disease; 99% focal mid segment disease right after take-off of 1st septal branch; distal luminal irregularities as wraps around apex with KELLY 2 flow. Circumflex - Large caliber vessel with luminal irregularities. Moderate caliber OM1 with 20-30% proximal stenosis. Large L-PLB without significant disease. RCA - Dominant, diffuse 40-50% distal disease; 30% proximal R-PDA LVEDP - 6 -- PCI -- Antithrombotic therapy: Heparin, clopidogrel Procedure: LM cannulated with EBU 3.5 guide BMW wire passed across lesion into distal vessel Mid LAD lesion predilated with 2.5 compliant balloon Dilated lesion stented with 3.0 x 18 Xience IRIS Stent post-dilated with 3.0 noncompliant balloon IC vasodilators administered for spasm Post procedure KELLY 3 flow, stent well expanded with minimal residual stenosis and no apparent cardiac complications. Arterial Closure: TR Band Summary: 1. Severe single vessel coronary artery disease - 99% focal mid LAD stenosis with KELLY 2 distal flow - 40-50% diffuse distal RCA disease 2. Normal intracardiac filling pressure 3. Successful PCI of mid LAD with single drug-eluting stent (3.0 x 18 Xience). Recommendations: To PCU for continued monitoring Loaded with clopidogrel 600mg in quality assurance/r&d lab technician Continue dual-antiplatelet therapy for at least 1 year. Continue statin, and ASCVD risk factor modification Consult cardiac Rehab Hemodynamics Rest Ao: 107/67/84 Final Ao: 112/58/81 LV: 109/6 Recommendations PCI without planned CABG Specimens None Radiation Exposure (mGy) 1299 Contrast (mls) 70 opti Fluids (cc crystalloids) 75 Drains none Anesthesia moderate Procedural Complication(s) None Disposition PCU ACC Data Cardiac Status Clinical evaluation leading to the procedure CAD Presntation: Unstable angina Anginal Classification: CCS III Heart Failure: No, NYHA Class: CCS I Cardiogenic Shock w/in 24Hrs: No Cardiac Arrest w/in 24Hrs: No Imaging studies past 6 months: Yes Stress studies past 6 months: No Closure Device Percutaneous Entry Location: Radial Closure Device: Radial Band Recommendations: PCI without planned CABG PCI Indication: Unstable Angina Lesion Segment Name: mid LAD Culprit Artery: Yes Stenosis Prior to Rx (%): 99 Chronic Total Occlusion: No IVUS: No FFR: No Pre-Procedure KELLY Flow: 2 Previously Treated Lesion: No Lesion Complexity: Non-High/Non-C Lesion Length (mm): 12 Thrombus Present: Yes Bifurcation Lesion: Yes Guidewire Across Lesion: Yes Guidewire: Stenosis Post-Procedure (%): 0 Post-Procedure KELLY Flow: 3 Device(s) Deployed: Yes Intraprocedure Events Significant Dissection: No Perforation: No Medication Reconciliation New Medications: Rosuvastatin Calcium (Crestor) 5 Mg Tab 1 TAB PO MWF for 30 Days, #12 TAB 0 Refills Clopidogrel Bisulfate (Clopidogrel) 75 Mg Tab 75 MG PO QAM for 30 Days, #30 TAB Pantoprazole (Pantoprazole Sodium) 40 Mg Tab 40 MG PO DAILY for 30 Days, #30 TAB Continued Medications: Aspirin (Aspirin Ec) 81 Mg Tab 81 MG PO QPM Coenzyme Q10 (Ubidecarenone) (Coq10) 200 Mg Cap 200 MG PO BID Ezetimibe (Zetia) 10 Mg Tab 10 MG PO DAILY, TAB Losartan Potassium (Cozaar) 100 Mg Tab 100 MG PO DAILY, TAB Metformin Hcl (Glucophage) 500 Mg Tab 500 MG PO QPM, TAB Multivitamins/Minerals (Mvi With Minerals) Tab 1 TAB PO DAILY, TAB Polyethylene Glycol 3350 (Bulk (Polyethylene Glycol 3350) 1 Pow Pow 17 GM PO QPM, #255 GM Discontinued Medications: Omeprazole (Prilosec) 40 Mg Cap 40 MG PO DAILY, CAP Discharge Exam ROS Constitutional: no chills, aches, sweats or fever Respiratory: no sob,cough, sputum, or wheezing Cardiac: no chest pain, palpitations, edema, orthopnea or lightheadedness GI: no abdominal pain, nausea, vomiting, diarrhea or constipation : no dysuria or hesitancy Extremities: no joint pain or weakness Skin: no rash All other systems reviewed and negative PE General: no distress Eyes: normal inspection, PERLL Respiratory: chest non tender, clear to auscultation, normal breath sounds, no respiratory distress, no accessory muscle use Cardiac: regular rate and rhythm, no rub or gallop, no murmur, no edema, no jvd GI/: active bowel sounds, no abd pain or tenderness, soft, non distended Extremities: normal range of motion, normal strength, non tender Neuro/Psych: alert and oriented x 3, normal mood and affect Skin: normal color, dry Hospital Course Mr. Robles is a 67 y/o man with Hx HTN, HLD, DM II. Presented with exertional CP x 3-4 weeks. The pt's pain began when he was on a treadmill a few weeks ago. He describes central CP radiating into his L arm which is relieved with rest. He denied SOB, N/V, diaphoresis or lightheadedness. He developed symptoms when walking the prior day and had contacted his MD. After discussing the above with his MD, a discussion took place with his chief projectionist and he was directed to the ER for presumed unstable angina. Unstable angina - Cardiac Cath 06/09 - one IRIS to the LAD via radial PCI - continue ASA, Plavix. He does not tolerate statins well but is willing to try very low dose Crestor and titrate up. He will discharge with 5mg MWF. His HR would not likely tolerate a B artie - trops neg x 3 DM II - restart home metformin 06/12, ss provided while inpatient HTN - continue Losartan for home HLD - statin as above, continue Zetia GERD - change omeprazole to pantoprazole as patient is taking Plavix COMMUNITY ASSISTANT Physician Supervision Note: I discussed with Madison Pham NP and agree with findings and plan as documented in the note. Any exceptions or clarifications are listed here: None stable for discharge Documented By: Saul Naranjo Total Time Spent: Greater than 30 minutes This includes examination of the patient, discharge planning, medication reconciliation, and communication with other providers. Discharge Instructions Please refer to the electronic Patient Visit Report (Discharge Instructions) for additional information. Follow-Up Dr. Bowen in 2 weeks, pcp within a week Additional Copies To Loc Aquino M.D.
== END 2018-06-10 12:09 | disposition home or self-care (01) | DRG 247 ==
LOC: C.EDB 15:02 → C.2T 21:13 → ENRESERV 22:23
PROVIDERS: ADMIT Internal Medicine; ATTEND Nurse Practitioner Family
PROC: B2111ZZ Fluoroscopy of Multiple Coronary Arteries using Low Osmolar Contrast (ICD-10-PCS; principal; 2018-06-09 10:52)
PROC: 027034Z Dilation of Coronary Artery, One Artery with Drug-eluting Intraluminal Device, Percutaneous Approach (ICD-10-PCS; principal; 2018-06-09 10:52)
PROC: 3E033PZ Introduction of Platelet Inhibitor into Peripheral Vein, Percutaneous Approach (ICD-10-PCS; principal; 2018-06-09 10:52)
PROC: 4A023N7 Measurement of Cardiac Sampling and Pressure, Left Heart, Percutaneous Approach (ICD-10-PCS; principal; 2018-06-09 10:52)
DX: I25.110 Atherosclerotic heart disease of native coronary artery with unstable angina pectoris (principal); E11.9 Type 2 diabetes mellitus without complications; I10 Essential (primary) hypertension; E78.5 Hyperlipidemia, unspecified; Z82.49 Family history of ischemic heart disease and other diseases of the circulatory system; K21.9 Gastro-esophageal reflux disease without esophagitis